=== PATIENT | female | born 1965 | race Caucasian/White ===

== ENCOUNTER 2024-03-06 09:58 | Emergency (ER) | payer OTHER ==
[2024-03-06] MEDS ORDERED: HYDROCODONE/APAP 5/325 MG TAB ONE (10:31)
--- NOTE | 2024-03-06 12:00 | RAD REPORT ---
EXAM DESCRIPTION: RAD - Hip Right 2 View - 03/06/2024 11:32 am CLINICAL HISTORY: PAIN COMPARISON: No comparisons TECHNIQUE: Right hip, AP and frog-leg views. FINDINGS: There is no fracture or dislocation. No acute or destructive bony process seen. IMPRESSION: No acute findings of the right hip.
--- NOTE | 2024-03-06 12:03 | ER ---
Nurse's Notes [facility] Name: Carmen Garcia Age: 59 yrs Sex: Female : 1965 Arrival Date: 03/06/2024 Time: 09:58 Bed DX1 Private MD: Diagnosis: Right hip muscle strain, myofascial strain Presentation: 03/06 10:23 Chief complaint: Chief complaint: Patient states: right hip pain since yesterday , iw comes and goes, when standing it is constant, has severe spasms, taking tylenol, not helping, denies injury , pain radiates from right hip into leg , shoots down front of leg. 10:23 Coronavirus screen: At this time, the client does not indicate any symptoms associated iw with coronavirus-19. Ebola Screen: No symptoms or risks identified at this time. Initial Sepsis Screen: Does the patient meet any 2 criteria? No. Patient's initial sepsis screen is negative. Does the patient have a suspected source of infection? No. Patient's initial sepsis screen is negative. Risk Assessment: Do you want to hurt yourself or someone else? Patient reports no desire to harm self or others. Onset of symptoms was March 05, 2024. 10:23 Method Of Arrival: Wheelchair iw 10:23 Acuity: EB 3 iw Triage Assessment: 12:51 General: Appears in no apparent distress. Behavior is calm, cooperative, appropriate ap3 for age. Pain: Complains of pain in right hip. Historical: - Allergies: 10:26 Flagyl; iw 10:26 Cipro; iw 10:26 Codeine; iw - PMHx: 10:26 Hypertensive disorder; Hypercholesterolemia; breast cancer; iw - PSHx: 10:26 ovarian cyst; Cholecystectomy; mastectomy and reconstruction, Left; iw - Immunization history:: Adult Immunizations up to date. - Infectious Disease History:: Denies. - Social history:: Smoking status: Patient denies any tobacco usage or history of. Smoking status: Patient/guardian denies using tobacco, but has a distant history of tobacco abuse. Screenin:50 [facility] ED Fall Risk Assessment (Adult) History of falling in the last 3 months, ap3 including since admission No falls in past 3 months (0 pts) Confusion or Disorientation No (0 pts) Intoxicated or Sedated No (0 pts) Impaired Gait Yes (1 pt) Mobility Assist Device Used No (0 pt) Altered Elimination No (0 pt) Score/Fall Risk Level 0 - 2 = Low Risk Oriented to surroundings, Maintained a safe environment, Educated pt \T\ family on fall prevention, incl call for assistance when getting out of bed, Assessed \T\ reinforced patient's understanding of fall precautions, Provided non-skid footwear, Hourly rounding (assess needs \T\ fall precautionary measures) done, Used ambulatory aids as needed (educated on \T\ assisted with), Used gait belt as appropriate. Abuse screen: Denies threats or abuse. Nutritional screening: No deficits noted. Tuberculosis screening: No symptoms or risk factors identified. Vital Signs: 10:23 BP 97 / 79; Pulse 98; Resp 16; Temp 98.2; Pulse Ox 100% on R/A; Weight 88.45 kg; Height iw 5 ft. 5 in. ; Pain 5/10; 10:23 Body Mass Index 32.45 (88.45 kg, 165.1 cm) iw 10:23 Pain Scale: Adult iw ED Course: 10:08 Patient arrived in ED. mg5 10:12 Lai Augustin MD is Attending Physician. sp3 10:26 Triage completed. iw 10:26 Arm band placed on. iw 11:33 Hip Right 2 View XRAY In Process Unspecified. EDMS 12:01 Samir Hernández MD is Referral Physician. sp3 12:51 Patient has correct armband on for positive identification. Provided Education on: ap3 discharge instructions. 12:51 No provider procedures requiring assistance completed. Patient did not have IV access ap3 during this emergency room visit. Administered Medications: 10:34 Drug: HYDROcodone-acetaminophen PO 5 mg-325 mg 2 tabs PO once Route: PO; iw 12:50 Follow up: Response: No adverse reaction; Pain is decreased ap3 12:23 Drug: MethylPREDNISolone Sodium Succinate IM 60 mg IM once Route: IM; Site: right ap3 vastus lateralis; 12:50 Follow up: Response: No adverse reaction ap3 12:23 Drug: Ketorolac IM 30 mg IM once Route: IM; Site: right vastus lateralis; ap3 12:50 Follow up: Response: No adverse reaction; Pain is decreased ap3 Medication: 12:52 VIS not applicable for this client. ap3 Outcome: 12:01 Discharge ordered by . sp3 12:51 Discharged to home via wheelchair, with family, ap3 12:51 Condition: good 12:51 Discharge instructions given to patient, Instructed on discharge instructions, follow up and referral plans. medication usage, Demonstrated understanding of instructions, follow-up care, medications, Prescriptions given X 2, 12:52 Patient left the ED. ap3 Signatures: Dispatcher [employer] EDMS Meera Moralez RN RN iw Lola Vines RN RN ap3 Lai Augustin MD MD sp3 [place], [place] mg5 Corrections: (The following items were deleted from the chart) 10: 10:23 Chief complaint: iw iw 10: 10:26 Allergies: No Known Allergies; iw iw 10:28 10:23 BP 97 / 79; Pulse 98bpm; Resp 16bpm; Pulse Ox 100% RA; 88.45 kg; Height 5 ft. 5 iw in.; BMI: 32.4; Pain 5/10, Adult; iw
--- NOTE | 2024-03-06 12:03 | EDPHYS ---
Physician Documentation [facility] Name: Carmen Garcia Age: 59 yrs Sex: Female : 1965 Arrival Date: 03/06/2024 Time: 09:58 Bed DX1 Private MD: ED Physician Lai Augustin HPI: 03/06 11:50 This 59 yrs old Female presents to ER via Wheelchair with complaints of Hip Pain. sp3 11:50 59-year-old female with history of hypertension, hyperlipidemia, prior breast cancer sp3 now presents with a 2-day history of right hip and lateral musculature pain. Patient denies any direct trauma, known muscle strain or heavy lifting, repetitive movements or prior history. She denies distal numbness or tingling, weakness, loss of bowel or bladder control, saddle anesthesia, swelling, prior DVT or known clotting event, prolonged immobilization, chest pain, shortness of breath, abdominal pain, vomiting, diarrhea, or any other signs or symptoms on ROS at this time.. Historical: - Allergies: 10:26 Flagyl; iw 10:26 Cipro; iw 10:26 Codeine; iw - PMHx: 10:26 Hypertensive disorder; Hypercholesterolemia; breast cancer; iw - PSHx: 10:26 ovarian cyst; Cholecystectomy; mastectomy and reconstruction, Left; iw - Immunization history:: Adult Immunizations up to date. - Infectious Disease History:: Denies. - Social history:: Smoking status: Patient denies any tobacco usage or history of. Smoking status: Patient/guardian denies using tobacco, but has a distant history of tobacco abuse. ROS: 11:52 Constitutional: Negative for fever, chills, and weight loss, Eyes: Negative for injury, sp3 pain, redness, and discharge, ENT: Negative for injury, pain, and discharge, Neck: Negative for injury, pain, and swelling, Cardiovascular: Negative for chest pain, palpitations, and edema, Respiratory: Negative for shortness of breath, cough, wheezing, and pleuritic chest pain, Abdomen/GI: Negative for abdominal pain, nausea, vomiting, diarrhea, and constipation, Back: Negative for injury and pain, : Negative for injury, bleeding, discharge, and swelling, Skin: Negative for injury, rash, and discoloration, Neuro: Negative for headache, weakness, numbness, tingling, and seizure, Psych: Negative for depression, anxiety, suicide ideation, homicidal ideation, and hallucinations, Allergy/Immunology: Negative for hives, rash, and allergies, Endocrine: Negative for neck swelling, polydipsia, polyuria, polyphagia, and marked weight changes, 11:52 All other systems are negative, Exam: 11:52 Constitutional: This is a well developed, well nourished patient who is awake, alert, sp3 and in no acute distress. Head/Face: Normocephalic, atraumatic. Eyes: Pupils equal round and reactive to light, extra-ocular motions intact. Lids and lashes normal. Conjunctiva and sclera are non-icteric and not injected. Cornea within normal limits. Periorbital areas with no swelling, redness, or edema. Neck: Trachea midline, no thyromegaly or masses palpated, and no cervical lymphadenopathy. Supple, full range of motion without nuchal rigidity, or vertebral point tenderness. No Meningismus. Chest/axilla: Normal chest wall appearance and motion. Nontender with no deformity. No lesions are appreciated. Cardiovascular: Regular rate and rhythm with a normal S1 and S2. No gallops, murmurs, or rubs. Normal PMI, no JVD. No pulse deficits. Respiratory: Lungs have equal breath sounds bilaterally, clear to auscultation and percussion. No rales, rhonchi or wheezes noted. No increased work of breathing, no retractions or nasal flaring. Abdomen/GI: Soft, non-tender, with normal bowel sounds. No distension or tympany. No guarding or rebound. No evidence of tenderness throughout. Back: No spinal tenderness. No costovertebral tenderness. Full range of motion. Skin: Warm, dry with normal turgor. Normal color with no rashes, no lesions, and no evidence of cellulitis. Neuro: Awake and alert, GCS 15, oriented to person, place, time, and situation. Cranial nerves II-XII grossly intact. Motor strength 5/5 in all extremities. Sensory grossly intact. Cerebellar exam normal. Normal gait. Psych: Awake, alert, with orientation to person, place and time. Behavior, mood, and affect are within normal limits. 11:52 Musculoskeletal/extremity: Pain to palpation noted in the musculature around the lateral pelvis and hip area. No swelling distally and no signs of DVT. Pain is reproducible. No bony tenderness on the spine or hip or knee.. Vital Signs: 10:23 BP 97 / 79; Pulse 98; Resp 16; Temp 98.2; Pulse Ox 100% on R/A; Weight 88.45 kg; Height iw 5 ft. 5 in. ; Pain 5/10; 10:23 Body Mass Index 32.45 (88.45 kg, 165.1 cm) iw 10:23 Pain Scale: Adult iw MDM: 10:25 Patient medically screened. sp3 11:57 Data reviewed: vital signs, radiologic studies. ED course: 59-year-old female with sp3 right hip pain. Differential diagnosis includes musculoskeletal strain, myofascial inflammation, and to a much lesser degree fracture or DVT which I have ruled out clinically. Hip x-ray is also normal. We have treated with [place] 2 tabs, ketorolac IM, Solu-Medrol IM and we will discharge patient on diclofenac and Medrol Dosepak. Follow-up with PCP and orthopedics as needed.. 03/06 10:25 Order name: Hip Right 2 View XRAY; Complete Time: 12:01 sp3 Administered Medications: 10:34 Drug: HYDROcodone-acetaminophen PO 5 mg-325 mg 2 tabs PO once Route: PO; iw 12:50 Follow up: Response: No adverse reaction; Pain is decreased ap3 12:23 Drug: MethylPREDNISolone Sodium Succinate IM 60 mg IM once Route: IM; Site: right ap3 vastus lateralis; 12:50 Follow up: Response: No adverse reaction ap3 12:23 Drug: Ketorolac IM 30 mg IM once Route: IM; Site: right vastus lateralis; ap3 12:50 Follow up: Response: No adverse reaction; Pain is decreased ap3 Disposition Summary: 03/06/24 12:01 Discharge Ordered Notes: Location: Home sp3 Condition: Stable sp3 Diagnosis - Right hip muscle strain, myofascial strain sp3 Followup: sp3 - With: Private Physician - When: Upon discharge from the Emergency Department - Reason: Continuance of care Followup: sp3 - With: Samir Hernández MD - When: Upon discharge from the Emergency Department - Reason: Recheck today's complaints Discharge Instructions: - Discharge Summary Sheet sp3 - Hip Pain sp3 Forms: - Medication Reconciliation Form sp3 - Antibiotic Education sp3 - Prescription Opioid Use sp3 - Patient Portal Instructions sp3 - Leadership Thank You Letter sp3 Prescriptions: - Diclofenac Sodium 75 mg Oral Tablet Sustained Release - take 1 tablet ORAL route 2 times per day; 30 tablet; Refills: 0, Product sp3 Selection Permitted - Medrol ([place]) 4 mg Oral Tablets, Dose Pack - take 1 tablet ORAL route as directed - follow package instructions; 1 packet; sp3 Refills: 0, Product Selection Permitted Signatures: Dispatcher [employer] Meera Rosa RN RN iw Prokisch, Amanda, RN RN ap3 Lai Augustin MD MD sp3 Corrections: (The following items were deleted from the chart) 10:26 10:26 Allergies: No Known Allergies; elliott gallagher
[2024-03-06] MEDS ORDERED: KETOROLAC 30 MG/ML INJ ONE (12:12)
[2024-03-06] MEDS ORDERED: METHYLPREDNISOLONE 125 MG INJ ONE (12:12)
[2024-03-06 12:58] VITALS: BP 97/79; TEMP 98.2; O2SAT 100
== END 2024-03-06 12:52 | disposition home or self-care (01) ==
LOC: ER 09:58
DX: S76.011A Strain of muscle, fascia and tendon of right hip, initial encounter (principal); Z85.3 Personal history of malignant neoplasm of breast
CPT/HCPCS: 73502; J2919; 96372; 99284